=== PATIENT | male | born 2005 | race Caucasian/White ===

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

== ENCOUNTER 2023-06-09 14:19 | Emergency (ER) | payer BC ==
[~2023-06-09] VITALS: Ht 182.8 cm; Wt 86.2 kg
[~2023-06-09 14:19] MED LIST changes: +NAPROXEN250 MG PO; +TYLENOL325 M1 PO
[2023-06-09 15:31] LABS: BASO # 0.1 10*3/uL (0.0-0.1); BASO % 0.9 % (0.0-1.0); EOS # 0.3 10*3/uL (0.0-0.4); EOS % 5.9 % (1.0-4.0); LYMPH # 2.2 10*3/uL (1.3-4.4); LYMPH % 38.9 % (27.0-41.0); MEAN CELL VOLUME 85.8 fl (80.0-94.0); MEAN CORPUSCULAR HGB 29.3 pg (27.0-31.0); MEAN CORPUSCULAR HGB CONC 34.2 g/dl (33.0-37.0); MEAN PLATELET VOLUME 9.8 fl (9.6-12.3); MONO # 0.4 10*3/uL (0.1-1.0); MONO % 7.3 % (3.0-9.0); NEUT # 2.7 10*3/uL (2.3-7.9); NEUT % 46.8 % (47.0-73.0); PLATELET COUNT AUTOMATED 251 10*3/uL (130-400); RED BLOOD COUNT 5.01 10*6/uL (4.50-5.90); WHITE BLOOD COUNT 5.7 10*3/uL (4.8-10.8)
[2023-06-09 15:50] LABS: ALKALINE PHOSPHATASE 65 U/L (46-116); BUN 13 mg/dl (9-23); CHLORIDE 107 mmol/L (98-107); LIPASE 34 U/L (12-53); POTASSIUM 3.8 mmol/L (3.4-5.1); SGPT/ALT 17 U/L (5-49); TOTAL PROTEIN 7.4 gm/dL (6.0-8.0)
[2023-06-09 15:58] LABS: BILIRUBIN Negative (Negative); BLOOD Negative (Negative); CLARITY Clear (Clear); COLOR Yellow (Yellow); GLUCOSE Negative (Negative); KETONE Negative (Negative); LEUKO ESTERASE Negative (Negative); NITRITE Negative (Negative); PH 7.5 (4.5-8.0); UROBILINOGEN 0.2 E.U./dl (0.0-1.0)
[2023-06-09 16:18] LABS: RBC 0-2 rbc/hpf (0-2); WBC 0-2 wbc/hpf (0-5)
== END 2023-06-09 16:50 | disposition home or self-care (01) ==
LOC: ED 14:19
PROVIDERS: Nurse Practitioner Family
DX: R10.31 Right lower quadrant pain (principal)

== ENCOUNTER 2024-03-19 06:36 | Emergency (ER) | payer BC ==
[2024-03-19] MEDS ORDERED: NAPROXEN250 MG PO (06:50)
[2024-03-19] MEDS ORDERED: Ketorolac Tromethamine 60 MG/2 ML VIAL IM ONE (06:50)
[2024-03-19] MEDS ORDERED: METHOCARBAMOL500 M1 PO (06:50)
[2024-03-19] MEDS ORDERED: METHOCARBAMOL 500 MG TAB PO ONE (06:50)
== END 2024-03-19 07:00 | disposition home or self-care (01) ==
LOC: ED 06:36
DX: S39.012A Strain of muscle, fascia and tendon of lower back, initial encounter (principal); X58.XXXA Exposure to other specified factors, initial encounter; Y93.89 Activity, other specified; Y92.89 Other specified places as the place of occurrence of the external cause; Y99.8 Other external cause status

== ENCOUNTER 2024-08-11 18:27 | Emergency (ER) | payer SELFPAY ==
[~2024-08-11] VITALS: Ht 182.8 cm; Wt 83.9 kg
[~2024-08-11 18:27] MED LIST changes: +METHOCARBAMOL500 M1 PO
[2024-08-11] MEDS ORDERED: Dexamethasone/Tobramycin OPHTHALMIC 2.5 ML BOTTLE OPH ONE (19:25)
== END 2024-08-11 19:39 | disposition home or self-care (01) ==
LOC: ED 18:27
DX: T15.02XA Foreign body in cornea, left eye, initial encounter (principal); Z79.899 Other long term (current) drug therapy; W44.8XXA Other foreign body entering into or through a natural orifice, initial encounter; Y93.89 Activity, other specified; Y92.89 Other specified places as the place of occurrence of the external cause; Y99.8 Other external cause status